=== PATIENT | female | born 1955 | race Caucasian/White ===

== ENCOUNTER 2025-06-07 14:10 | Emergency (ER) | payer MEDICARE, OTHER, SELFPAY ==
--- OUTSIDE RECORDS SUMMARY | 2025-06-05 23:59 | XMS_ITS | Continuity of Care Document ---
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 [place]06[place]25 - 06/05/25 [facility] Adult [address] [place] [address]- Encounter Type: Triage Allergies, Adverse Reactions, Alerts Substance Criticality Severity Reaction Reaction Severity Status morphine Unable to assess criticality Persistent Severe Active diclofenac sob Active meloxicam Active Ambien Active Augmentin 1 Active Levaquin Active Demerol Active 1inside of mouth swelling, throat swelling Immunizations Given and Recorded Vaccine Date Status Refusal Reason influenza virus vaccine, inactivated 05/29/25 Andrey rded influenza virus vaccine, inactivated 1 05/16/24 Gi avi influenza virus vaccine, inactivated 2 06/10/23 Gi avi influenza virus vaccine, inactivated 05/13/22 Give n influenza virus vaccine, inactivated 05/27/21 Give n influenza virus vaccine, inactivated 04/14/20 Andrey rded influenza virus vaccine, inactivated 3 05/16/18 Gi avi influenza virus vaccine, inactivated 4 04/20/17 Gi avi influenza virus vaccine, inactivated 07/01/16 Give n influenza virus vaccine, inactivated 05/02/15 Give n influenza virus vaccine, inactivated 04/24/14 Give n influenza virus vaccine, inactivated 5 05/16/13 Gi avi pneumococcal 20-valent conjugate vaccine 06/10/23 Given [id number] 12y+ bivalent booster vax 06/13/22 Recorded pneumococcal 23-valent vaccine 6 09/14/21 Given SARS-CoV-2 (COVID-19) mRNA BNT-162b2 vac 12/06/20 Recorded SARS-CoV-2 (COVID-19) mRNA BNT-162b2 vac 11/17/20 Recorded Influenza Virus Vaccine (oldterm) 05/09/19 Recorde d Influenza Virus Vaccine (oldterm) 05/28/08 Given Influenza Virus Vaccine (oldterm) 7 05/18/07 Given Influenza Virus Vaccine (oldterm) 8 07/15/06 Given tetanus/diphtheria/pertussis, acel(Tdap) 06/13/13 Given Fluarix (oldterm) 05/14/11 Given FluLaval (oldterm) 9 05/06/10 Given Influenza Inactive (IM) (oldterm) 04/18/09 Given Pneumococcal Vaccine (oldterm) 07/08/06 Given Tetanus Toxoid Vaccine (oldterm) 08/01/02 Given 1Result Comment: NEGATIVE FLU SCREENING 2Result Comment: INFLUENZA CHECKLIST COMPLETED 3Result Comment: [05/16/2018] [id number] 4Result Comment: [04/20/2017] [facility]# [id number] 5Result Comment: [06/13/2013] Received at [facility] in [place] 6Result Comment: [facility] [id number] 7Admin Note: given in clinic 8Admin Note: GIVEN IN CLINIC SHAM 9Admin Note: BIOMEDICAL YANNI Medications albuterol CFC free 90 mcg/inh inhalation aerosol 2, puffs, Inhalation, Every 4 hours, # 18 Gm, Refills 5, Tot. Refills 5, Soft Stop, 12/03/24 8:24:00 AM EDT, Route to Pharmacy Electronically, [id number], [facility]/pharmacy #[id number], 170, cm, 08/24/24 12:51:00 EST, Height Start Date: 12/03/24 Status: Ordered Medication Dispense Status: Completed Quantity: 18.0 Unit: g Total Allowed Fills: 6 Fills Dispensed: 0 Indications: Unspecified asthma, uncomplicated; cloNIDine 0.2 mg oral tablet 1, tablet, By Mouth, Every 4 hours, # 540 tablet, Refills 1, Maintenance, 05/10/25 11:02:00 AM EDT,Route to Pharmacy Electronically, [facility] [id number], 170, cm, 04/24/25 12:47:00 EDT, Height, 49.5, kg, 01/04/25 19:05:00 EDT, Dry Weight Start Date: 05/10/25 Status: Ordered Medication Dispense Status: Completed Quantity: 540.0 Unit: tablet Total Allowed Fills: 1 Fills Dispensed: 0 levothyroxine 0.137 mg oral tablet See Instructions, NAME BRAND MEDICALLY NECESSARY NO SUBSTITUTION Please take one tablet tuesday through Tuesday, and two tablets on Sundays. Increased dose Jun 2023 due to elevated TSH., # 94 tablet,3 Refills, Maintenance, 04/27/24 7:36:00 AM EDT, Tablet, [facility]/pharmacy #[id number], Partial fill upon patient request if the prescription is for a schedule II opioid drug., 170, cm, 02/13/24 18:18:00 EDT, Height Start Date: 04/27/24 Status: Ordered Medication Dispense Status: Completed Quantity: 94.0 Unit: tablet Total Allowed Fills: 4 Fills Dispensed: 0 Indications: Hypothyroidism, unspecified; LORazepam 1 mg oral tablet 2 tablet = 2 mg, By Mouth, Daily at bedtime, # 60 tablet, 0 Refills, Maintenance, 05/15/25 3:18:00 PM EDT, [facility]/pharmacy #[id number], Partial fill upon patient request if the prescription is for a schedule II opioid drug., 170, cm, 04/24/25 12:47:00 EDT, Height, 49.5, kg, 01/04/25 19:05:00 EDT, Dry Weight Start Date: 05/15/25 Stop Date: 06/14/25 Status: Ordered Medication Dispense Status: Completed Quantity: 60.0 Unit: tablet Total Allowed Fills: 1 Fills Dispensed: 0 Multivitamin By Mouth, Daily, 0 Refills, Maintenance, 06/19/15 9:48:25 AM EST Start Date: 06/19/15 Status: Ordered Medication Dispense Status: Completed Total Allowed Fills: 1 Fills Dispensed: 0 oxyCODONE 5 mg oral tablet See Instructions, 5mg 1x daily and half of a 5mg tablet 5x daily for 28 days. Each dose should be taken at least 4 hours apart., # 98 tablet, Refills 0, Tot. Refills 0, Maintenance, 05/15/25 3:17:00 PM EDT, Instructions Replace Required Details, Route to Pharmacy Electronically, [facility]/pharmacy #[id number],Partial fill upon patient request if the prescription is for a schedule II opioid drug., 170, cm, 04/24/25 12:47:00 EDT, Height, 49.5, kg, 01/04/25 19:05:00 EDT, Dry Weight Start Date: 05/15/25 Status: Ordered Medication Dispense Status: Completed Quantity: 98.0 Unit: tablet Total Allowed Fills: 1 Fills Dispensed: 0 Indications: Myalgia, other site; Problem List Condition Confirmation Course Effective Dates Status H ealth Status Informant Allergic rhinitis Confirmed Active Asthma 1, 2 Confirmed Active Asthma, Unspecified Confirmed 06/12/12 Active Afib Confirmed Active Benzodiazepine dependence Confirmed Active Cervical spondylosis Confirmed Active Recurrent severe acute sinusitis Confirmed 06/12/12 Active DJD (degenerative joint disease) of cervical spine Confirmed Active Hypertension Confirmed Active Hypothyroidism Confirmed Active Right shoulder injury Confirmed Active Insomnia Confirmed Active Right knee pain Confirmed Active 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 Smoking Status Former smoker entered on: 05/22/18 Sex Sex Representation Female (finding) Patient Care team information Care Team Personnel Name: Elizabet Lowery Position: [facility] PCO Associate Professional Member Role: PCP Address: [address] [place] [address]- Telecom: Care Team Related Persons Name: BRYON FAY Name: ROBY FAY Name: KRISTY FAY Insurance Providers Guarantor name: CHRISTIANO FAY Health Plan Information #: 1 Payer: [facility] Payer Identifier: NA Member Number: [id number] Group Number: [id number] Subscriber Identifier: TANA Relationship to Subscriber: self Coverage Type: Medicare PPO Coverage Verification Date: NA Telecom: NA Address: [facility] Plan Information #: 2 Payer: [employer] Payer Identifier: TANA Member Number: [id number] Group Number: [id number] Subscriber Identifier: TANA Relationship to Subscriber: self Coverage Type: MEDICAID Coverage Verification Date: TANA Telecom: NA Address:
--- NOTE | ~2025-06-07 | CT_ITS ---
CLINICAL HISTORY: fall head strike CT head without contrast Comparison: None provided Findings: No intra-axial mass, midline shift, hydrocephalus, or acute hemorrhage. Right thalamic lacunar encephalomalacia, image number 16 of 29 series 5. The visualized paranasal sinuses and mastoid air cells are normal. The orbits are unremarkable. There is no acute fracture. IMPRESSION: 1. Right thalamic lacunar encephalomalacia. 2. No acute intracranial findings. This document has been electronically signed by: Ki Elizabeth MD on 06/07/2025 18:17:57
--- NOTE | ~2025-06-07 | CT_ITS ---
CLINICAL HISTORY: Rt knee pain CT of the right knee without contrast Comparison: None provided Findings: No dislocation identified. No radiopaque foreign object. Mild osteopenia. Moderate fluid fluid joint effusion. Lateral tibial plateau depressed fracture fragment, 0.7 cm height loss craniocaudal with anterior fracture fragment, 2.6 cm craniocaudal by 2.1 cm transverse by 1.9 cm AP. IMPRESSION: Anterior lateral tibial plateau depressed fracture. Moderate lipohemarthrosis. Mild osteopenia. This document has been electronically signed by: Ki Elizabeth MD on 06/07/2025 18:01:41
--- NOTE | ~2025-06-07 | CT_ITS ---
CLINICAL HISTORY: fall chest trauma CT chest with contrast Comparison: CT - CT CHEST W IV CON - 06/07/25 16:50 EST Findings: The heart size is normal. The visualized thyroid and mediastinum are unremarkable. No consolidation or effusion. The visualized upper abdomen is unremarkable. The bones are intact. Mild osteopenia. IMPRESSION: 1. No acute findings of the thorax. This document has been electronically signed by: Ki Elizabeth MD on 06/07/2025 18:07:11
--- NOTE | ~2025-06-07 | CT_ITS ---
CLINICAL HISTORY: fall abd trauma CT abdomen and pelvis with contrast Comparison: None provided Findings: The lung bases are clear. Splenic low-attenuation lesion, 0.4 cm; splenic cysts. The liver is homogeneous in attenuation. The gallbladder has a normal appearance. The left and right kidney demonstrate symmetric corticomedullary enhancement. No hydronephrosis identified. No nephroliths noted. The adrenal glands are within normal limits. The pancreas is mildly atrophic. There is diffuse fecal material seen throughout the colon. The appendix is within normal limits. Diverticulosis. Prior hysterectomy. No acute fracture. IMPRESSION: 1. Diverticulosis 2. Mild pancreatic atrophy. 3. No acute intraabdominal or pelvic pathology. This document has been electronically signed by: Ki Elizabeth MD on 06/07/2025 19:10:16
--- NOTE | ~2025-06-07 | CT_ITS ---
CLINICAL HISTORY: fall neck pain CT cervical spine without contrast Comparison: None provided Findings: C7-T1: Grade 1 anterolisthesis C7 over T1. No significant degenerative change. Mild osteopenia. Prior cervical anterior cervical discectomy and fusion C5/C6/C7 with intervertebral fusion hardware. No acute findings on limited view of the intracranial contents. Soft tissues of the neck are normal. No consolidation or effusion at the lung apices. C1-2: Mild anterior osteoarthrosis. C3-4: Mild left and no significant right spondylitic neural foraminal stenosis. C4-5: [id number] left and no significant right spondylitic neural foraminal stenosis. IMPRESSION: 1. Grade 1 anterolisthesis C7 over T1. 2. Prior cervical anterior cervical discectomy and fusion C5/C6/C7 with intervertebral fusion hardware. 3. Mild osteopenia. 4. No acute osseous injury. This document has been electronically signed by: Ki Elizabeth MD on 06/07/2025 18:14:35
--- NOTE | ~2025-06-07 | XR_ITS ---
EXAMINATION: XR KNEE, RIGHT CLINICAL INFORMATION: Rt knee pain COMPARISON: None available. TECHNIQUE: AP and lateral views of the right knee. FINDINGS: There is probable diffuse osteopenia. There is a small amount of joint fluid. There is mild narrowing of the medial greater than lateral compartment. There are small tricompartmental marginal osteophytes, most pronounced involving patella. There is mild sclerosis and irregularity in the lateral tibial plateau XR/XR knee RT 2V IMPRESSION: There is mild sclerosis and irregularity of the lateral tibial plateau. If the patient has a history of trauma and focal pain in this region, follow-up with bilateral oblique views of the right knee to better evaluate for the possibility of a fracture. Mild osteoarthritis. Osteopenia. Electronically signed by: Cortez Almendarez MD 06/07/2025 03:08 PM SANDRA HERRMANN
[2025-06-07 14:25] VITALS: BP 154/98; BP 170/100; PULSE 80; PULSE 99; RESP 16; TEMP 36.8; O2SAT 97; O2SAT 98; BMI 19.2
--- NOTE | 2025-06-07 14:29 | ED.GENADULT ---
HPI - General Adult General Chief complaint: Fall Stated complaint: Fall, ? knee dislocation Time Seen by Provider: 06/07/25 15:16 Source: patient and EMS Mode of arrival: EMS Limitations: no limitations History of Present Illness ED Provider: AMAN Gomez HPI narrative: This is a 70-year-old female presenting to the emergency department status post fall with severe right knee pain. She reports she was outside with her dog, her dog ran towards her, hit the side of her knee, she fell since then she has been having excruciating greater than 10/10 stabbing pain to her knee. She is unable to move it. She was unable to get up from the ground. She does report head strike no loss of consciousness and she likely hit her neck. She is not sure how she landed because it all happened so quickly and she feels like she is just in a lot of pain. Patient is not on a blood thinner. Denies preceding symptoms to fall. Denies headache, vision changes, dizziness, nausea, vomiting, chest pain, shortness of breath, abdominal pain Related Data Home Medications ?Medication ?Instructions ?Recorded ?Confirmed lorazepam 1 mg tablet 2 mg PO BEDTIME 06/07/25 06/07/25 oxycodone 5 mg tablet 5 mg PO DAILY 06/07/25 06/08/25 oxycodone 5 mg tablet 2.5 mg PO 5XD 06/08/25 06/08/25 Previous Rx's ?Medication ?Instructions ?Recorded morphine 15 mg immediate release 15 mg PO Q6H PRN pain 5 days #10 06/07/25 tablet tabs Allergies Allergy/AdvReac Type Severity Reaction Status Date / Time No Known Allergies (No Known Allergy Verified 06/07/25 14:28 Allergies*) Review of Systems Review of Systems: Yes all other systems are reviewed and are negative PMFSH Past Medical History Attestation statement: The following information was validated with the patient. Source: old records reviewed and nursing notes reviewed Social History Social History Smoked in Last 30 Days: No Use of substances other than those prescribed or required for medical reasons: No Advance Directives: Yes Advance Directives on File: Yes Advance Directives Date on File: 06/07/26 Do you have a plan to hurt others: No Plan Physical Exam ED Exam Exam: Appearance: Alert.? Oriented X3.? No acute distress.? Head: Normocephalic, atraumatic, no step-offs or deformities Eyes: Pupils equal, round and reactive to light.? ENT: Pharynx normal.? Neck: Normal inspection.? Neck supple.? CVS: Normal heart rate and rhythm.? Pulses normal.? Respiratory: No respiratory distress.? Breath sounds normal.? Abdomen: Soft and nontender.? Skin: Skin warm and dry.? Normal skin color.? Normal skin turgor.? Extremities: No lower extremity edema.? No calf ttp. 5/5 strength to bilateral upper and lower extremities +significant ecchymosis and swelling to the anterior patella. Patient is in an immobilizer that was placed by EMS. Normal distal sensation palpable pulses dorsalis pedis, anterior tibialis and popliteal. Back: No midline tenderness, no C-spine tenderness, full range of motion, no CVA tenderness bilaterally Neuro: Oriented X 3.? No motor deficit.? No sensory deficit. CN 2-12 intact Vital Signs: Vital Signs - 24 hr 06/09/25 21:03 06/10/25 05:44 06/10/25 12:33 Temperature 98.6 F 97.1 F 97.2 F Pulse Rate 95 82 108 H Respiratory Rate 16 18 18 Blood Pressure 130/89 137/83 157/82 H Pulse Oximetry 99 97 97 Oxygen Delivery Method Room Air Room Air Room Air 06/10/25 13:56 Temperature 97.2 F Pulse Rate 108 H Respiratory Rate 18 Blood Pressure 157/82 H Pulse Oximetry 96 Oxygen Delivery Method Room Air BMI result Body Mass Index 19.2 vss Course Reevaluation(s) Reevaluation #1: Patient's CBC unremarkable. Chemistry with no acute findings needing intervention. Troponin negative, EKG with atrial flutter patient has history of AFib I told her she should make her PCP aware of this. She is not anticoagulated. Coags unremarkable. X-ray of the knee mild sclerosis and irregularity of the lateral tibial plateau she does have tenderness to palpation in this region will obtain CT for further evaluation. Mild osteoarthritis. Patient was seen by orthopedics who recommends knee immobilizer nonweightbearing and follow up with ortho Time: 16:17 Reevaluation #2: Sign out will be given to Dedra pending imaging Time: 16:33 Reevaluation #3: CT head/brain wo IV con IMPRESSION: 1. Right thalamic lacunar encephalomalacia. 2. No acute intracranial findings. CT cervical spine wo IV con IMPRESSION: 1. Grade 1 anterolisthesis C7 over T1. 2. Prior cervical anterior cervical discectomy and fusion C5/C6/C7 with intervertebral fusion hardware. 3. Mild osteopenia. 4. No acute osseous injury. CT chest w IV con IMPRESSION: 1. No acute findings of the thorax. CT abdomen pelvis w IV con IMPRESSION: 1. Diverticulosis 2. Mild pancreatic atrophy. 3. No acute intraabdominal or pelvic pathology. CT knee RT wo IV con IMPRESSION: Anterior lateral tibial plateau depressed fracture. Moderate lipohemarthrosis. Mild osteopenia. >Patient currently in knee immobilizer. In significant amount of pain. Is to be nonweightbearing. Plan for PT / case management. Physician observation initiated at 19:22 -11:50 PM 06/07/2025 (Dedra Michelle PA-C): Patient discussed with case management that she would like to fill out a MOLST & expressed that she would like to be DNR / DNI. However upon verification / clarification patient was confused that the MOLST would stay standing after hospitalization. This conversation occurred at nearly midnight and patient was tired & with shared decision making we will pause this conversation until the morning. -0200- ED care transferred to AMAN Ziegler pending PT/CM Additional Reevaluation(s): Time: 08:13 Date: 06/08/25 Provider: AMAN Salmeron Patient in physician observation for case management needs. No acute events reported overnight.? No current issues or complaints. VS stable. Patient is pending PT/CM eval. Will continue to monitor. 06/09/2025 1110 Carito Lyon PA-C---> Observation continues. Adjusted pain medication for appropriate scale to use PRN. Case management continues to follow. 06/10/2025 17:50 Angeles Ledezma PA-C---> Observation continues. No overnight events reported, no current issues or complaints. VS stable. Patient will discharged to [facility] for STI OR via BLS at 2:00 p.m. Medications Administered Discontinued Medications Generic Name Dose Route Start Last Admin Trade Name Freq PRN Reason Stop Dose Admin Acetaminophen 975 mg 06/08/25 21:00 06/10/25 07:24 Acetaminophen 325 Mg Tablet PO 975 mg TID CARLEY Administration Acetaminophen 1,000 mg in 100 mls @ 400 mls/hr 06/07/25 20:57 06/07/25 22:00 Ofirmev IV 06/07/25 21:11 Infused ONCE ONE Infusion Iohexol 100 ml 06/07/25 17:14 06/07/25 17:17 Iohexol 350 Mg/Ml 100 Ml Infus..Btl IV 06/07/25 17:15 85 ml ONCE ONE Administration Ketorolac Tromethamine 15 mg 06/09/25 05:49 06/09/25 05:53 Ketorolac Tromethamine 15 Mg/Ml Vial IVPUSH 06/09/25 05:50 15 mg ONCE ONE Administration Lidocaine 1 patch 06/08/25 19:09 06/08/25 20:29 Lidocaine 4 % Patch Adh..Patch TRANSDERMA 06/08/25 19:10 1 patch ONCE ONE Administration Protocol Lorazepam 2 mg 06/07/25 21:00 06/09/25 21:08 Lorazepam 1 Mg Tablet PO 2 mg BEDTIME CARLEY Administration Morphine Sulfate 4 mg 06/07/25 14:27 06/07/25 14:51 Morphine Sulfate 4 Mg/Ml Cartridge IVPUSH 06/07/25 14:28 4 mg ONCE ONE Administration Protocol Morphine Sulfate 4 mg 06/07/25 16:27 06/07/25 16:32 Morphine Sulfate 4 Mg/Ml Cartridge IVPUSH 06/07/25 16:28 4 mg ONCE ONE Administration Protocol Morphine Sulfate 15 mg 06/07/25 20:58 06/10/25 11:18 Morphine Sulfate Immed Release 15 Mg Tablet PO 15 mg Q4H PRN Administration Pain, Moderate(Pain Scale 4-6) Oxycodone HCl 5 mg 06/07/25 18:41 06/07/25 19:32 Oxycodone Hcl Immed Release 5 Mg Tablet PO 06/07/25 18:42 5 mg ONCE ONE Administration Medical Decision Making Medical Decision Making MDM Narrative: 70-year-old female presents status post fall with severe right-sided knee pain. Does endorse head and neck strike. Unclear how she landed she is in a lot of pain. Not on blood thinner Physical exam significant ecchymosis and swelling to the anterior patella. Patient is in an immobilizer that was placed by EMS. Normal distal sensation palpable pulses dorsalis pedis, anterior tibialis and popliteal. Patient in a cervical collar no midline tenderness. Regular rate and rhythm. Lungs clear. Neurological assessment nonfocal Will rule out traumatic injury to head, neck, chest, abdomen and pelvis. I do suspect possible patellar dislocation. Will rule out fractures and dislocations. Will rule out metabolic derangements although unlikely. Will also obtain an EKG to rule out dysrhythmia although this seems to be a mechanical fall. No signs of neurovascular compromise or acute threat to limb Plan labs, imaging Differential Diagnosis Differential Diagnoses: The differential diagnosis associated with the presentation includes (Will rule out traumatic injury to head, neck, chest, abdomen and pelvis. I do suspect possible patellar dislocation. Will rule out fractures and dislocations. Will rule out metabolic derangements although unlikely. Will also obtain an EKG to rule out dysrhythmia although this seems to be a mecha) Admission/Observation Consideration of admission/observation: Escalation of care including admission/observation considered Lab Data MDM Lab Attestation statement: I reviewed the patient's lab results. 06/07/25 14:49 06/07/25 14:49 Labs: Lab Results 06/07/25 Range/Units 14:49 WBC 6.1 (4.8-10.8) X10*3/uL RBC 4.67 (4.20-5.50) X10*6/uL Hgb 13.1 (12.0-16.0) g/dl Hct 40.3 (37.0-47.0) % MCV 86.3 (80.0-98.0) fL MCH 28.1 (27.0-33.0) pg MCHC 32.5 (31.0-35.0) g/dl RDW 14.0 (11.0-16.0) % Plt Count 242 (160-400) X10*3/uL MPV 9.2 L (9.4-12.3) fL Immature Gran % (Auto) 0.2 (0.0-0.4) % Neut % (Auto) 71.2 (45-73) % Lymph % (Auto) 19.5 L (20-40) % [place] % (Auto) 7.9 (2-11) % Eos % (Auto) 1.0 (0-4) % Baso % (Auto) 0.2 (0-2) % Lymph # (Auto) 1.2 (1.2-4.9) X10*3/uL [place] # (Auto) 0.5 (0.1-1.2) X10*3/uL Eos # (Auto) 0.1 (0.0-0.4) X10*3/uL Baso # (Auto) 0.0 (0.0-0.2) X10*3/uL Abs Immat Gran (auto) 0.01 (0.00-0.03) X10*3/uL Absolute Neuts (auto) 4.3 (2.0-8.3) x10*3/uL Absolute Nucleated RBC 0.000 (0.0-0.012) X10*3/uL Nucleated RBC % (auto) 0.0 (0.0-0.2) /100WBC PT 12.1 (11.2-13.5) SEC INR 1.0 (0.9-1.1) Sodium 142 (135-145) mmol/L Potassium 3.8 (3.3-5.1) mmol/L Chloride 109 H (96-108) mmol/L Carbon Dioxide 26 (22-29) mmol/L Anion Gap 11 L (12-20) BUN 20 H (9-16) mg/dL Creatinine 0.63 (0.5-1.4) mg/dL Estim Creat Clear Calc 69.8 Estimated GFR > 60 Random Glucose 136 H (60-115) mg/dL Calcium 9.8 (8.4-10.2) mg/dL Magnesium 2.1 (1.6-2.6) mg/dL Total Bilirubin 0.3 (0.0-1.0) mg/dL AST 22 (5-31) U/L ALT 18 (0-31) U/L Alkaline Phosphatase 54 (39-117) U/L Troponin I High Sens < 2.7 (<3.5-17.0) ng/L Total Protein 6.8 (6.5-8.0) g/dL Albumin 4.5 (3.5-5.0) g/dL Independent Interpretation I performed an independent interpretation of an: EKG (Atrial flutter nondiagnostic for chief complaint. No acute ischemic changes noted), Plain X-Ray (Atrial flutter with variable A-V block Septal infarct , age undetermined Abnormal ECG No previous ECGs available ) and CT Scan Radiology Impression Discussion of test interpretation with radiology: I have reviewed the radiologist's reading. Critical Care Time Critical Care Time Critical Care Time: Yes Total Critical Care Time: 35 Attestation: I attest to this time spent taking care of the patient, obtaining history, physical, reviewing labs, imaging, treatment of patients condition +/- specialist/hospitalist consult +/- procedure Discharge Plan Discharge Clinical Impression: Closed fracture of tibial plateau Qualifiers: Encounter type: initial encounter Laterality: right Qualified Code(s): S82.141A - Displaced bicondylar fracture of right tibia, initial encounter for closed fracture Fall Qualifiers: Encounter type: initial encounter Qualified Code(s): W19.XXXA - Unspecified fall, initial encounter Concussion Qualifiers: Encounter type: initial encounter Loss of consciousness presence/duration: without LOC Qualified Code(s): S06.0X0A - Concussion without loss of consciousness, initial encounter Patient Disposition: Xfer Inpatient Rehab Fac Transfer Details: TO DR JOSE RUSSELL ACCEPTING Instructions: Concussion (ED), Fall Prevention (ED) Additional Instructions: Take your medications as prescribed. If you were prescribed antibiotics today, it is important that you take your medication to their entirety, do not skip any doses, do not finish them early. Follow-up with your primary care provider this week. Return to the emergency department with new or worsening symptoms. Such as fevers, chills, chest pain, shortness of breath, nausea, vomiting, dizziness, headache, vision changes, lethargy In case of emergency call 911 You should be nonweightbearing to the right lower extremity. Prescriptions: New morphine 15 mg tablet 15 mg PO Q6H PRN (Reason: pain) 5 Days Qty: 10 0RF Rx Instructions: Partial Fill upon patient request. No Action lorazepam 1 mg tablet 2 mg PO BEDTIME oxycodone 5 mg tablet 5 mg PO DAILY oxycodone 5 mg tablet 2.5 mg PO 5XD Rx Instructions: Q4H Referrals: [facility] [Provider Group, Orthopedics] - 1 week Kelsy Price [Outside] Elizabet Calhoun PA [Primary Care Provider, Internal Medicine] - 1 week Stand Alone Forms: Work/School Release Discharge Date/Time: 06/10/25 14:13 Print Language: French
[2025-06-07 14:32] VITALS: BP 154/98; PULSE 99; RESP 16; TEMP 36.8; O2SAT 97
--- NOTE | 2025-06-07 14:32 | ECG_ITS ---
Test Reason : FALL Blood Pressure : */* mmHG Vent. Rate : 111 BPM Atrial Rate : 365 BPM P-R Int : * ms QRS Dur : 80 ms QT Int : 322 ms P-R-T Axes : * -18 -19 degrees QTcB Int : 437 ms Afib with RVR Septal infarct , age undetermined Abnormal ECG No previous ECGs available Referred By: Dannielle Gomez Electronically Signed By: Horace Gomez
[2025-06-07 14:55] LABS: MANUAL DIFF FLAG NO
[2025-06-07 14:57] LABS: Hematocrit 40.3 % (37.0-47.0); Hemoglobin 13.1 g/dl (12.0-16.0); Imm Gran Abs Auto 0.01 X10*3/uL (0.00-0.03); Imm Gran Pct Auto 0.2 % (0.0-0.4); Lymphocytes Absolute Auto 1.2 X10*3/uL (1.2-4.9); Mean Corpuscular HGB Conc 32.5 g/dl (31.0-35.0); Mean Corpuscular Hemoglobin 28.1 pg (27.0-33.0); Mean Corpuscular Volume 86.3 fL (80.0-98.0); NRBC Abs Auto 0.000 X10*3/uL (0.0-0.012); NRBC Pct Auto 0.0 /100WBC (0.0-0.2); Platelet Count 242 X10*3/uL (160-400); Red Blood Count 4.67 X10*6/uL (4.20-5.50); White Blood Count 6.1 X10*3/uL (4.8-10.8)
[2025-06-07 15:02] LABS: INTERNATIONAL NORM RATIO 1.0 (0.9-1.1); Prothrombin Time 12.1 SEC (11.2-13.5)
[2025-06-07 15:13] LABS: Alanine Aminotransferase 18 U/L (0-31); Albumin Level 4.5 g/dL (3.5-5.0); Alkaline Phosphatase 54 U/L (39-117); Anion Gap 11 (12-20); Aspartate Amino Transferase 22 U/L (5-31); Blood Urea Nitrogen 20 mg/dL (9-16); Calcium 9.8 mg/dL (8.4-10.2); Carbon Dioxide 26 mmol/L (22-29); Chloride 109 mmol/L (96-108); Creatinine Clr Calc Pharmacy 69.8; Estimated Glomerular Filt Rate > 60; Magnesium 2.1 mg/dL (1.6-2.6); Potassium 3.8 mmol/L (3.3-5.1); Sodium 142 mmol/L (135-145); Total Protein 6.8 g/dL (6.5-8.0)
[2025-06-07 15:21] LABS: Troponin-I High Sensitivity < 2.7 ng/L (<3.5-17.0)
--- NOTE | 2025-06-07 15:39 | PC.NURSE ---
A&O x 3 Patient presents to ED c/o right knee pain after falling from being tripped by her dog Patient unsure of headstrike Denies thinners, lightheadedness, dizziness, SOB, Eyes PERRLA Patient came in with Ccollar and 18G in LAC and splint on right leg +CMS patient unable to bend right knee VSS and up to date Plan of care on going
--- OUTSIDE RECORDS SUMMARY | 2025-06-07 16:46 | XMS_ITS | Clinical Summary ---
Author Organization [facility] Address [address] [place] [address] Phone Care Team Providers Care Electronics Worker Name Role Phone Thaddeus Pedro MD Primary Care Provider [phone] Allergies Active Allergy Reactions Criticality Noted Date Comments Zolpidem 04/06/2021 Amoxicillin-Pot Clavulanate 04/06/20 21 Meperidine 04/06/2021 Diclofenac Sodium 04/06/2021 Levofloxacin 04/06/2021 Meloxicam 04/06/2021 Morphine 04/06/2021 Medications levothyroxine (SYNTHROID, LEVOTHROID) 137 MCG tablet Take 137 mcg by mouth every morning. Active LORazepam (ATIVAN) 1 MG tablet Take 1 mg by mouth every 6 (six) hours as needed for anxiety. Active oxyCODONE 5 MG immediate release tablet Take 5 mg by mouth every 4 (four) hours as needed for moderate pain. Active Active Problems No known active problems Social History Tobacco Use Types Packs/Day Years Used Date Smoking Tobacco: Former Cigarettes Q uit: 04/06/2000 Smokeless Tobacco: Never Alcohol Use Standard Drinks/Week Comments Not Currently 0 (1 standard drink = 0.6 oz pur e alcohol) Education Answer Date Recorded Are you interested in more education? Not on phyllis e 11/26/2022 Are you concerned about learning? Not on file 11/26/2022 No 11/26/2022 No 11/26/2022 Digital Access Answer Date Recorded No 12/25/2022 No 12/25/2022 No 12/25/2022 Reliable internet access at home? Not on file 12/25/2022 Device with a working camera? Not on file Comments Unknown Sex and Gender Information Value Date Recorded Sex Assigned at Not on file Legal Sex Female 9:57 PM EDT Gender Identity Not on file Sexual Orientation Not on file Last Filed Vital Signs Vital Sign Reading Time Taken Comments Blood Pressure 132/84 04/06/2021 2:29 PM EDT Pulse 79 04/06/2021 2:29 PM EDT Temperature 36.6 C (97.9 F) 04/06/2021 2:29 PM EDT Respiratory Rate - - Oxygen Saturation 96% 04/06/2021 2:29 PM EDT Inhaled Oxygen Concentration - - Weight 52.2 kg (115 lb) 04/06/2021 2:29 PM EDT Height 167.6 cm (5' 6 ) 04/06/2021 2:29 PM EDT Body Mass Index 18.56 04/06/2021 2:29 PM EDT Plan of Treatment Health Maintenance Due Date Last Done Comments Adult Td,Tdap Booster 1954 LIPID PANEL 1954 TSH LEVEL 1954 DEPRESSION SCREENING 1966 SMOKING Hx and SMOKELESS TOBACCO SCREENING 1967 HEPATITIS C SCREENING 1972 MAMMOGRAM 1994 COLOGUARD 1999 COLONOSCOPY 1999 COLORECTAL CANCER SCREENING 1999 FIT TEST 1999 FOBT 1999 SIGMOIDOSCOPY 1999 VIRTUAL COLONOSCOPY 1999 PNEUMOCOCCAL VACCINES (50+ years) (1 of 1 - PCV) 2004 ZOSTER VACCINES (1 of 2) 2004 OSTEOPOROSIS SCREENING INITI AL (ONE-TIME) 2019 INFLUENZA VACCINE (#1) 2025 , 05/09/2019 COVID-19 VACCINE (3 - 2024-2 6 season) 2025 12/06/2020, 11/17/2020 RSV VACCINE (1 - 1-dose 75+ series) 2029 HEPATITIS A VACCINES Aged Out No long er eligible based on patient's age to complete this topic HIB VACCINES Aged Out No longer eligi ble based on patient's age to complete this topic MENINGOCOCCAL VACCINES (ACWY) Aged Out No longer eligible based on patient's age to complete this topic MENINGOCOCCAL VACCINES (B) Aged Out N o longer eligible based on patient's age to complete this topic Medical Devices Not on file Insurance MEDICARE PPO BLUE REPLACEMENT MEDICARE PPO BLUE REPLACEMENT MEDICARE PPO BLUE REPLACEMENT MEDICARE PPO BLUE REPLACEMENT MEDICARE PPO BLUE REPLACEMENT MEDICARE PPO BLUE REPLACEMENT MEDICARE PPO BLUE REPLACEMENT Member Subscriber Plan / Payer (Ef fective 2019-Present) Name:Hannah Thomasyl Relation to Subscriber:Self Name:Hannah Thomasyl Payer ID:[id number] (NAIC) Type:Medicare Address: [facility] [id number] [place] [id number] Care Teams Electronics Worker Relationship Specialty Start Date End Date Thaddeus Pedro MD PCP - General Internal Medicine 04/06/21 Additional Source Comments The information contained in this document represents components of the legal health record. It is not the complete legal health record.[facility]
--- OUTSIDE RECORDS SUMMARY | 2025-06-07 16:46 | XMS_ITS | Encounter Summary ---
Author Organization [facility] Address [address] [place] [address] Phone Care Team Providers Care Singer Songwriter Name Role Phone Thaddeus Pedro MD Primary Care Provider [phone] Encounter Details Date Type Department Care Team (Late st Contact Info) Description 12/14/2023 Procedure Pass [facility], Ct Scan - [address] [address] Social History Tobacco Use Types Packs/Day Years [...] on file Sexual Orientation Not on file documented as of this encounter Plan of Treatment Not on file documented as of this encounter Visit Diagnoses Not on filedocumented in this encounter Care Teams Singer Songwriter Relationship Specialty Start Date End Date Thaddeus Pedro MD PCP - General Internal Medicine 04/06/21 documented as of this encounter Additional Source Comments The information contained in this document represents components of the legal health record. It is not the complete legal health record.[facility]
[2025-06-07] MEDS: iohexoL 350 MG/ML 100 ML INFUS..BTL IV (17:17)
[2025-06-07 17:41] VITALS: BP 174/97; PULSE 106; RESP 16; TEMP 36.8; O2SAT 97
[2025-06-07 18:22] VITALS: BP 177/102; PULSE 102; RESP 17; TEMP 37; O2SAT 98
[2025-06-07] MEDS: oxyCODONE HCl Immed Release 5 MG TABLET PO (19:32)
--- NOTE | 2025-06-07 20:02 | PC.NURSE ---
med rec done with pt. only taking lorazepam and oxycodone taper per pt. valtrex PRN which she does not need right now per pt
[2025-06-07 22:01] VITALS: BP 167/104; PULSE 94; RESP 18; TEMP 36.9; O2SAT 98
--- NOTE | 2025-06-07 22:10 | MHC.CM.ED ---
CM met with patient to discuss discharge planning. Pt lives with her . She cares for him. He has multiple medical issues, has VNA 3 days/week, and weighs 400 lbs. She has no services. Uses no DME. Her daughter and son both live with her. Her daughter is helping to care for her father. Pt is not active with [facility]. States they had services with [facility] in the past, but he did not want them any more. PCP , address, insurances verified. No HCP on file. HCP reviewed, completed and signed. Copies given. Uploaded into [employer] and [facility] [employer]. HCP #1 Jacques Husseinbhavana (son) [phone] and HCP #2 Kelin William 9daughter) [phone]. Pt wishes to be a DNR/DNI. Provider aware. Will complete a MOLST. Pt agreeable to PT and STR. Pt [place] CM [place] bedroom on the first floor and a half bath, so she thinks she will recover at an additional home in [place] that [place], however, she would be alone. CM suggested that she sees how she does in rehab, as she is non-weight bearing on the R knee. She may need help when she returns home from rehab. CM will place a referral for [facility]
--- NOTE | 2025-06-07 22:10 | PC.NURSE ---
purewick in place d/t knee fx
[2025-06-07 22:27] VITALS: BP 159/102
--- NOTE | 2025-06-07 22:48 | PC.NURSE ---
pt reporting pain relief from IV tylenol, pain 4/10
[2025-06-08] MEDS: Morphine Sulfate Immed Release 15 MG TABLET PO ×4 (01:28→16:55)
--- NOTE | 2025-06-08 05:54 | PC.NURSE ---
pt resting comfortably throughout the night, purewick working well. no apparent distress noted at this time
[2025-06-08 06:00] VITALS: BP 134/78; PULSE 105; RESP 16; TEMP 36.8; O2SAT 97
[2025-06-08 12:17] VITALS: BP 149/60; PULSE 74; RESP 18; TEMP 36.5; O2SAT 95
[2025-06-08 12:42] VITALS: BP 150/114; PULSE 106; RESP 20; TEMP 37; O2SAT 100
[2025-06-08 18:42] VITALS: BP 150/98; PULSE 105; RESP 18; TEMP 36.7; O2SAT 96
--- NOTE | 2025-06-08 19:36 | PC.NURSE ---
pt alert and oriented x4, settled in room and pt repositioned for comfort. morphine x2 with + effect but pt reporting intermittent breakthrough pain with some cramping. provider aware and adjusting orders. plan of care progressing. Pt denies other needs at this time .
[2025-06-08] MEDS: Lidocaine 4 % Patch ADH..PATCH 1 PATCH TRANSDERMA (20:29)
--- NOTE | 2025-06-08 20:37 | PC.NURSE ---
Addendum entered by Jenn Butler RN 06/08/25 22:44: Patient transferred to main ED by technology resource teacher at ~22:44. Patient transferred conversing and in stable condition with all belongings to receiving ED [facility]. Addendum entered by Jenn Butler RN 06/08/25 22:26: Report called to receiving main ED [facility] at ~22:26. Original Note: Assumed care of this patient 19:00 hour this evening. Patient seen in ED overflow. A&Ox4. Pt reports some improvement in pain from earlier today in right knee, currently rated 4/10 this evening. +distal pt/dp pulses, +cms. +dorsiflexion and plantarflexion. Non-pitting edema to right knee, normothermic to touch compared to contralateral knee. Lidocaine patch placed to right knee, 975mg tylenol given with effectiveness pending. LSCTA on room air. Pt denies chest pain, sob, n/v, or other acute complaints. Call wall within reach and educated on use, rings appropriately to make needs known. Bed alarm on and safety measures in place. Plan of care ongoing.
[2025-06-08 21:11] VITALS: BP 137/90; PULSE 102; RESP 18; TEMP 36.8; O2SAT 94
--- NOTE | 2025-06-08 22:59 | PC.NURSE ---
Assumed care of patient @ 2240. Pt moved from ED overflow to ED18. Pt A&Ox3, resting in hospital bed. Respirations equal and unlabored. Pt denies pain. Call wall within reach.
[2025-06-09 03:31] VITALS: BP 134/87; PULSE 105; RESP 18; O2SAT 97
[2025-06-09] MEDS: Morphine Sulfate Immed Release 15 MG TABLET PO ×3 (03:35→21:08)
--- NOTE | 2025-06-09 03:36 | PC.NURSE ---
Pt awoke reporting 7/10 pain in right leg. Requesting pain medication. Pt medicated as charted.
[2025-06-09 06:36] VITALS: BP 139/95; PULSE 95; RESP 16; TEMP 36.9; O2SAT 96
[2025-06-09 17:36] VITALS: BP 170/97; PULSE 106; RESP 17; O2SAT 98
[2025-06-09 21:03] VITALS: BP 130/89; PULSE 95; RESP 16; TEMP 37; O2SAT 99
--- NOTE | 2025-06-09 21:07 | PC.NURSE ---
pt alert and oriented x4, R knee significantly less red and swollen than yesterday. This am pt clearly tense and stating that the pain was not good while reporting 4/10 pain. Provider aware and morphine scale adjusted, when pt offered med she declined stating it had started to pass and she wanted to wait it out. Pt visibly less tense and reporting pain is more tolerable and stable most of the rest of the day. ice packs provided for continued relief, pt medicated as per sep. knee immobilizer in place. pt encouraged and assisted to turn/reposition and heels floated.
[2025-06-10 05:44] VITALS: BP 137/83; PULSE 82; RESP 18; TEMP 36.2; O2SAT 97
--- NOTE | 2025-06-10 06:26 | PC.NURSE ---
Assumed care of pt at 2300. Pt A+Ox4. Able to follow commands. Pt medicated for pain per MAR. Pt resting in bed with call wall in reach. High fall risk precautions in place. Brace intact to R leg. See flowsheets and MAR for more information. Awaiting disposition. Plan of care continues.
[2025-06-10] MEDS: Morphine Sulfate Immed Release 15 MG TABLET PO ×2 (06:30→11:18)
--- NOTE | 2025-06-10 06:31 | PC.NURSE ---
450ml clear yellow urine emptied from purewik
--- NOTE | 2025-06-10 08:41 | MHC.CM.ED ---
Patient remains in ER overflow. Physical therapy eval completed. Rehab is recommended. [facility], [facility], [facility], [facility], [facility], [facility], [facility], [facility], [facility] and [facility] are able to offer a bed. Met with patient to discuss bed offers. [facility] accepts [facility]. [facility] is in the process of obtaining ins auth. Continue to monitor for d/c needs.
--- NOTE | 2025-06-10 10:43 | PHA.MEDREC ---
Pharmacy Consult ? Medication Reconciliation Pharmacy has completed the medication reconciliation. Note added for previous pharmacist
[2025-06-10 12:33] VITALS: BP 157/82; PULSE 108; RESP 18; TEMP 36.2; O2SAT 97
--- NOTE | 2025-06-10 12:35 | MHC.CM.ED ---
Insurance auth has been obtained by [facility]. Patient can leave at 2pm. [facility] booked. Med nec with chart. Patient, Frieda DIXON and Angeles NEWTON aware. Continue to monitor for d/c needs.
[2025-06-10 13:56] VITALS: BP 157/82; PULSE 108; RESP 18; TEMP 36.2; O2SAT 96
== END 2025-06-10 14:13 ==
PROVIDERS: Physician Assistant; Emergency Provider Emergency Medicine Emergency Medical Services; PCP Physician Assistant
DX: S82.141A Displaced bicondylar fracture of right tibia, initial encounter for closed fracture (principal); R51.9 Headache, unspecified; M54.2 Cervicalgia; M25.561 Pain in right knee; I48.20 Chronic atrial fibrillation, unspecified; R10.23 Pelvic and perineal pain bilateral; R26.2 Difficulty in walking, not elsewhere classified; W01.0XXA Fall on same level from slipping, tripping and stumbling without subsequent striking against object, initial encounter; Z91.81 History of falling; Y93.01 Activity, walking, marching and hiking; Y92.9 Unspecified place or not applicable; Y99.8 Other external cause status; Z79.899 Other long term (current) drug therapy
CPT/HCPCS: 36415; 70450; 71260; 72125; 73560; 73700; 74177; 80053; 83735; 84484; 85025; 85610; 93005; 96365; 96375; 97161; 99285; J0131; J1885; J2270; Q9967

== ENCOUNTER → 2025-06-07 14:27 | Outpatient (BNV) | payer MEDICARE, MEDICAID, SELFPAY | PROVIDERS: Emergency Provider Emergency Medicine Emergency Medical Services; PCP Physician Assistant; Visit Provider Radiology Diagnostic Radiology | DX: K57.90 Diverticulosis of intestine, part unspecified, without perforation or abscess without bleeding (principal); K86.89 Other specified diseases of pancreas; S29.9XXA Unspecified injury of thorax, initial encounter; M54.2 Cervicalgia; M85.88 Other specified disorders of bone density and structure, other site; S82.121A Displaced fracture of lateral condyle of right tibia, initial encounter for closed fracture; M25.061 Hemarthrosis, right knee; S09.0XXA Injury of blood vessels of head, not elsewhere classified, initial encounter; G93.89 Other specified disorders of brain; M17.11 Unilateral primary osteoarthritis, right knee; M85.861 Other specified disorders of bone density and structure, right lower leg; Z04.3 Encounter for examination and observation following other accident | CPT/HCPCS: 73560 ==

== ENCOUNTER → 2025-06-07 14:32 | Outpatient (BNV) | payer MEDICARE, SELFPAY | PROVIDERS: Emergency Provider Emergency Medicine Emergency Medical Services; PCP Physician Assistant; Visit Provider Internal Medicine Cardiovascular Disease | DX: I48.91 Unspecified atrial fibrillation (principal) | CPT/HCPCS: 93010 ==